=== PATIENT | female | born 1980 | race Asian ===

== ENCOUNTER 2021-11-27 16:44 | Emergency (ER) | payer OTHER ==
[~2021-11-27 16:44] MED LIST: BUPR200T3 PO; CLON1TAB12 PO; DEXT20TA5 PO; FLUO20CA36 PO
== END 2021-11-27 17:39 | disposition left against medical advice (07) ==
LOC: EMS 16:47
DX: Z53.21 Procedure and treatment not carried out due to patient leaving prior to being seen by health care provider (principal)

== ENCOUNTER 2021-12-30 23:42 | Emergency (ER) | payer OTHER ==
[~2021-12-30] VITALS: Ht 162.6 cm; Wt 54.0 kg
[2021-12-31 02:06] LABS: APPEARANCE,URINE CLEAR (CLEAR); BILIRUBIN,URINE NEGATIVE (NEGATIVE); GLUCOSE, URINE (UA) NEGATIVE (NEGATIVE); KETONES,URINE TRACE mg/dL (NEGATIVE); LEUKOCYTE ESTERASE ,URINE TRACE (NEGATIVE); NITRATE,URINE NEGATIVE (NEGATIVE); OCCULT BLOOD,URINE NEGATIVE (NEGATIVE); PH,URINE 5.5 (5.0-8.0); PROTEIN,URINE NEGATIVE (NEGATIVE); UROBILINOGEN,URINE 0.2 mg/dL (<=1.0)
[2021-12-31 02:14] LABS: BACTERIA,URINE Rare /HPF (None Seen); SQUAMOUS EPITHELIAL CELL,UR Moderate /LPF (None Seen)
[2021-12-31 02:15] LABS: MUCUS,URINE Moderate LPF (None Seen)
[2021-12-31] MEDS ORDERED: METR500 PO (02:28)
[2021-12-31] MEDS ORDERED: KETOROLAC TROMETHAMINE 30 MG/ML VIAL IM ONE (02:30)
[2021-12-31 03:50] VITALS: BP 139/95
== END 2021-12-31 06:32 | disposition home or self-care (01) ==
LOC: EMS 23:43
DX: M54.9 Dorsalgia, unspecified (principal); N76.0 Acute vaginitis; B96.89 Other specified bacterial agents as the cause of diseases classified elsewhere; F32.9 Major depressive disorder, single episode, unspecified; F17.210 Nicotine dependence, cigarettes, uncomplicated; Z79.899 Other long term (current) drug therapy
CPT/HCPCS: 81001; 84703; 96372; 99283; J1885

== ENCOUNTER 2022-06-10 00:32 | Emergency (ER) | payer OTHER ==
[~2022-06-10] VITALS: Ht 167.6 cm; Wt 72.7 kg
[~2022-06-10 00:32] MED LIST changes: -BUPR200T3 PO; +BUPR200T8 PO; +METR500 PO
[2022-06-10] MEDS ORDERED: CERT400S SQ (00:41)
[2022-06-10] MEDS ORDERED: CETI-450 PO (00:42)
[2022-06-10 02:00] VITALS: BP 145/87
[2022-06-10] MEDS ORDERED: IBUP-2070 PO (02:28)
[2022-06-10] MEDS ORDERED: AMOX500C2 PO (02:28)
== END 2022-06-10 02:58 | disposition home or self-care (01) ==
LOC: EMS 00:37
DX: H66.002 Acute suppurative otitis media without spontaneous rupture of ear drum, left ear (principal); R35.0 Frequency of micturition; F32.9 Major depressive disorder, single episode, unspecified; F17.210 Nicotine dependence, cigarettes, uncomplicated; Z79.899 Other long term (current) drug therapy
CPT/HCPCS: 81002; 99283